=== PATIENT | male | born 1995 | race African-American/Black ===

== ENCOUNTER 2020-09-18 08:10 | Emergency (ER) | payer OTHER ==
[2020-09-18] MEDS ORDERED: VIBRAMYCIN100 MG PO (09:06)
== END 2020-09-18 09:35 | disposition home or self-care (01) ==
LOC: FER 08:10
DX: N34.2 Other urethritis (principal)
CPT/HCPCS: 99283; J0696

== ENCOUNTER 2020-11-22 09:33 | Emergency (ER) | payer OTHER ==
[~2020-11-22 09:33] MED LIST: VIBRAMYCIN100 MG PO
[2020-11-22 10:12] LABS: BASOPHIL 0.3 % (0-2); EOSINOPHIL 0.9 % (0-5); HCT 48.6 % (42.0-52.0); HGB 15.8 g/dl (13.2-18.0); LYMPHOCYTE 40.3 % (15-48); MCH 29.4 pg (25.0-31.0); MCHC 32.5 g/dL (32.0-36.0); MCV 90.5 fL (78.0-100.0); MONOCYTE 6.9 % (0-12); NEUTROPHIL 51.5 % (41-80); NRBC 0; PLT 217 K/uL (150-400); RBC 5.37 M/uL (4.70-6.00); RDW 12.2 % (11.5-14.0); WBC 6.7 K/uL (4.0-10.5)
[2020-11-22 10:51] LABS: BILIRUBIN - TOTAL 1.1 mg/dL (0.2-1.0); BUN/CREAT RATIO (CALC) 12.8 RATIO; CREATININE 1.33 mg/dL (0.67-1.17); GLOBULIN (CALCULATION) 3.3 g/dL; POTASSIUM 3.8 mmol/L (3.5-5.1); TOTAL PROTEIN 7.3 g/dL (6.4-8.2)
[2020-11-22 10:55] LABS: BILIRUBIN NEGATIVE (NEGATIVE); BLOOD NEGATIVE Ery/uL (NEGATIVE); CLARITY CLEAR (CLEAR); COLOR YELLOW (YELLOW); GLUCOSE (U) NORMAL (NORMAL); LEUKOCYTES NEGATIVE Leu/uL (NEGATIVE); NITRITE NEGATIVE (NEGATIVE); PROTEIN NEGATIVE (NEGATIVE); UROBILINOGEN 0.2 mg/dL (0.2-1.0); pH 6.5 (5.0-9.0)
[2020-11-22 10:57] LABS: AMPHETAMINES NEGATIVE (NEGATIVE); BARBITURATES NEGATIVE (NEGATIVE); ECSTASY (MDMA) NEGATIVE (NEGATIVE); MARIJUANA (THC) POSITIVE (NEGATIVE); METHADONE NEGATIVE (NEGATIVE); OPIATES NEGATIVE (NEGATIVE); OXYCODONE NEGATIVE (NEGATIVE)
[2020-11-22] MEDS ORDERED: MEDROL 4MG DOSEP4 MG PO (11:26)
[2020-11-22] MEDS ORDERED: CYCLOBENZAPRINE10 MG PO (11:28)
== END 2020-11-22 11:43 | disposition home or self-care (01) ==
LOC: FER 09:33
PROVIDERS: Internal Medicine
DX: N17.9 Acute kidney failure, unspecified (principal); I10 Essential (primary) hypertension; M54.5 Low back pain
CPT/HCPCS: 36415; 72131; 80053; 80305; 81003; 85025